=== PATIENT | male | born 1975 | race Two or more races ===

== ENCOUNTER 2021-01-05 08:00 | Inpatient (IN) | payer OTHER ==
[~2021-01-05] VITALS: Ht 165.1 cm; Wt 77.1 kg
[2021-01-05] MEDS ORDERED: METFORMIN HCL850 M1 PO (08:28)
[2021-01-05] MEDS ORDERED: GLIMEPIRIDE4 MG (08:28)
[2021-01-05] MEDS ORDERED: PRAVASTATIN SOD20 MG PO (08:29)
== END 2021-01-29 10:32 | disposition home health service (06) | DRG 987 ==
LOC: SURH 01-12 08:00 → O/R 01-12 10:20 → ICU 01-12 10:20 → SURH 01-12 13:30 → ICU 01-20 12:56 → SURH 01-27 22:10
PROVIDERS: ADMIT Urology; ATTEND Urology
PROC: BT1F0ZZ Fluoroscopy of Left Kidney, Ureter and Bladder using High Osmolar Contrast (ICD-10-PCS; 2021-01-12)
PROC: 0BH17EZ Insertion of Endotracheal Airway into Trachea, Via Natural or Artificial Opening (ICD-10-PCS; 2021-01-12)
PROC: 5A1955Z Respiratory Ventilation, Greater than 96 Consecutive Hours (ICD-10-PCS; 2021-01-12)
PROC: 06H03DZ Insertion of Intraluminal Device into Inferior Vena Cava, Percutaneous Approach (ICD-10-PCS; 2021-01-12)
PROC: 0T9B70Z Drainage of Bladder with Drainage Device, Via Natural or Artificial Opening (ICD-10-PCS; 2021-01-12)
PROC: 0TC48ZZ Extirpation of Matter from Left Kidney Pelvis, Via Natural or Artificial Opening Endoscopic (ICD-10-PCS; principal; 2021-01-12 13:30)
PROC: 8E0ZXY6 Isolation (ICD-10-PCS; 2021-01-20)
PROC: 4A033R1 Measurement of Arterial Saturation, Peripheral, Percutaneous Approach (ICD-10-PCS; 2021-01-25)
DX: J95.89 Other postprocedural complications and disorders of respiratory system, not elsewhere classified (principal); J81.0 Acute pulmonary edema; J96.01 Acute respiratory failure with hypoxia; J15.0 Pneumonia due to Klebsiella pneumoniae; R65.21 Severe sepsis with septic shock; A41.9 Sepsis, unspecified organism; E87.2 Acidosis; N17.8 Other acute kidney failure; I82.411 Acute embolism and thrombosis of right femoral vein; I82.441 Acute embolism and thrombosis of right tibial vein; I82.811 Embolism and thrombosis of superficial veins of right lower extremity; N20.0 Calculus of kidney; E11.21 Type 2 diabetes mellitus with diabetic nephropathy; T81.82XA Emphysema (subcutaneous) resulting from a procedure, initial encounter; Z79.4 Long term (current) use of insulin; R31.9 Hematuria, unspecified

== ENCOUNTER 2021-05-24 09:48 | Outpatient (CLI) | payer OTHER ==
[~2021-05-24 09:48] MED LIST: GLIMEPIRIDE4 MG; METFORMIN HCL850 M1 PO; PRAVASTATIN SOD20 MG PO
== END 2021-05-24 09:51 | disposition home or self-care (01) ==
LOC: NUCLEAR 09:48
PROVIDERS: ATTEND Urology
DX: I82.890 Acute embolism and thrombosis of other specified veins (principal); I82.493 Acute embolism and thrombosis of other specified deep vein of lower extremity, bilateral; I87.2 Venous insufficiency (chronic) (peripheral)

== ENCOUNTER 2021-12-14 09:41 | Outpatient (CLI) | payer OTHER | END 2021-12-14 09:50 | disposition home or self-care (01) | LOC: NUCLEAR 09:41 | PROVIDERS: ATTEND Urology | DX: R60.0 Localized edema (principal); Z88.6 Allergy status to analgesic agent; Z91.013 Allergy to seafood ==